=== PATIENT | male | born 1960 | race Two or more races ===

== ENCOUNTER 2016-09-18 15:01 | Emergency (ER) | payer OTHER ==
[2016-09-18] MEDS ORDERED: Ketorolac 60 MG/2 ML SDV IM ONE (15:19)
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
[2016-09-18 20:49] VITALS: BP 148/88
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
== END 2016-09-18 17:27 | disposition home or self-care (01) ==
LOC: MW.ED 15:01
DX: S80.02XA Contusion of left knee, initial encounter (principal); M25.552 Pain in left hip; V33.5XXA Driver of three-wheeled motor vehicle injured in collision with car, pick-up truck or van in traffic accident, initial encounter
CPT/HCPCS: 73501; 73562; 96372; 99283; J1885